=== PATIENT | female | born 2000 | race Caucasian/White ===

== ENCOUNTER 2020-12-04 07:38 | Emergency (ER) | payer OTHER ==
[2020-12-04 07:55] VITALS: BP 109/60; PULSE 87; TEMP 98.2; BMI 23.1
== END 2020-12-04 08:10 | disposition home or self-care (01) ==
LOC: FER 07:38
DX: U07.1 COVID-19 (principal); B34.9 Viral infection, unspecified
CPT/HCPCS: 99284-25; C9803; U0003

== ENCOUNTER 2021-09-19 09:20 | Emergency (ER) | payer OTHER ==
[2021-09-19 09:31] VITALS: BP 127/96; PULSE 83; TEMP 99.3; BMI 24.0
[2021-09-19] MEDS ORDERED: ACETAMINOPHEN 500 MG TABLET (FP) PO ONE (09:31)
[2021-09-19] MEDS ORDERED: ACETAMINOPHEN 500 MG TABLET (FP) ONE (09:36)
[2021-09-19 13:01] LABS: THROAT:GRP A STREP DETECTED (NOTDETECTED)
[2021-09-19 13:37] LABS: SARS COV-2 MOLECULAR Negative (Negative)
== END 2021-09-19 09:45 | disposition home or self-care (01) ==
LOC: FER 09:20
DX: J02.0 Streptococcal pharyngitis (principal); Z11.52 Encounter for screening for COVID-19
CPT/HCPCS: 87651; 99283-25; C9803; U0003; U0005

== ENCOUNTER 2022-03-26 18:50 | Emergency (ER) | payer OTHER ==
[2022-03-26 19:06] VITALS: BP 135/87; PULSE 93; TEMP 100.2; BMI 25.7
[2022-03-26] MEDS ORDERED: SODIUM CHLORIDE 1,000 ML IV STA (19:44)
[2022-03-26] MEDS ORDERED: ACETAMINOPHEN 1000 MG/100 ML BAG IVPB ONE (19:44)
[2022-03-26 20:02] LABS: HCG,QUALITATIVE URINE Negative
[2022-03-26] MEDS ORDERED: ACETAMINOPHEN INJECTION 100 ML IVPB ONE (20:03)
[2022-03-26 20:05] LABS: HEMATOCRIT 30.3 % (32.4-45.2); HEMOGLOBIN 10.9 G/dL (10.7-15.3); MCH 32.4 pg (25.7-33.7); MEAN CELL VOLUME 89.8 fl (80-96); MEAN PLT VOLUME 8.2 fl (7.5-11.1); PLATELET COUNT 201.2 10^3/uL (134-434); RBC 3.37 10^6/uL (3.60-5.2); RDW 13.7 % (11.6-15.6); WHITE BLOOD COUNT 6.4 10^3/uL (4.0-10.8)
[2022-03-26 20:12] LABS: EPITHELIAL CELLS FEW /hpf
[2022-03-26 20:13] LABS: PLATELET ESTIMATE ADEQUATE
[2022-03-26 20:19] LABS: BILIRUBIN,TOTAL 0.8 mg/dl (0.2-1); CALCIUM 8.9 mg/dl (8.5-10); CREATININE 0.9 mg/dl (0.55-1.3); TOT PROT 6.9 g/dl (6.4-8.2)
[2022-03-27] MEDS ORDERED: DOXYCYCLINE HYCLATE 100 MG CAPSULE PO ONE ×2 (00:24→00:26)
[2022-03-27] MEDS ORDERED: KETOROLAC TROMETHAMINE 15 MG/ML VIAL IVPUSH ONE (00:24)
[2022-03-27] MEDS ORDERED: KETOROLAC TROMETHAMINE 15 MG/ML VIAL ONE (00:26)
== END 2022-03-27 00:32 | disposition home or self-care (01) ==
LOC: FER 18:50
PROC: 3E0333Z Introduction of Anti-inflammatory into Peripheral Vein, Percutaneous Approach (ICD-10-PCS; principal; 2022-03-26)
PROC: 3E0333Z Introduction of Anti-inflammatory into Peripheral Vein, Percutaneous Approach (ICD-10-PCS; 2022-03-26)
PROC: 3E0337Z Introduction of Electrolytic and Water Balance Substance into Peripheral Vein, Percutaneous Approach (ICD-10-PCS; 2022-03-26)
DX: R10.9 Unspecified abdominal pain (principal)
CPT/HCPCS: 36415; 74176-TC; 80053; 81003; 81015; 83690; 84703; 85027; 99284-25

== ENCOUNTER 2024-05-15 07:15 | Inpatient (IN) | payer OTHER ==
[2024-05-15] MEDS: ELECTROLYTE-148 SOLN 1,000 ML IV SCH (09:30)
[2024-05-15 09:57] VITALS: BMI 31.9
[2024-05-15] MEDS: OXYTOCIN 30 UNITS in 0.9% NS 30 UNIT/500 ML INFUS.BAG IVPB SCH (10:00)
[2024-05-15 10:03] LABS: BASO % 0.5 % (0-2.0); EOS % 2.3 % (0-4.5); HEMATOCRIT 36.9 % (32.4-45.2); LYMPH % 16.2 % (8-40); MCH 31.8 pg (25.7-33.7); MCHC 35.3 g/dl (32.0-36.0); MEAN CELL VOLUME 89.9 fl (80-96); MEAN PLT VOLUME 8.2 fl (7.5-11.1); MONO % 6.1 % (3.8-10.2); NEUT % 74.9 % (42.8-82.8); PLATELET COUNT 206 10^3/uL (134-434); RDW 13.7 % (11.6-15.6); WHITE BLOOD COUNT 7.9 K/mm3 (4.0-10.0)
[2024-05-15] MEDS ORDERED: OXYTOCIN 30 UNITS in 0.9% NS 30 UNIT/500 ML INFUS.BAG IVPB ONE (10:04)
[2024-05-15 10:07] LABS: INR 0.96 (0.83-1.09); PROTHROMBIN TIME (PATIENT) 11.1 SEC (9.7-13.0)
[2024-05-15 10:10] LABS: ACTIVATED PTT 26.1 SECONDS (25.2-36.5)
[2024-05-15 10:26] LABS: POTASSIUM 3.9 mmol/L (3.5-5.1)
[2024-05-15 10:27] LABS: CALCIUM 8.6 mg/dL (8.5-10.1)
[2024-05-15 10:28] LABS: BLOOD UREA NITROGEN 3.2 mg/dL (7-18)
[2024-05-15 10:31] LABS: CREATININE 0.5 mg/dL (0.55-1.3)
[2024-05-15 11:11] LABS: POC NITRAZINE NEG
[2024-05-15] MEDS ORDERED: FENTANYL/BUPIVACAINE/NS/PF - PCEA - 50 ML DISP.SYRIN EP ONE (13:40)
[2024-05-15] MEDS ORDERED: LIDOCAINE 1%/EPI 1:100000 (20 ML MULTI DOSE VIAL) ONE (14:04)
[2024-05-15] MEDS ORDERED: BUPIVACAINE HCL/PF 0.25% (2.5MG/ML) 10 ML VIAL ONE (14:04)
[2024-05-15] MEDS: FENTANYL/BUPIVACAINE/NS/PF - PCEA - 50 ML DISP.SYRIN EP SCH (14:30)
[2024-05-15] MEDS ORDERED: NALOXONE HCL 0.4 MG/ML VIAL IVPUSH PRN (15:17)
[2024-05-15] MEDS ORDERED: OXYTOCIN 20 UNITS in 0.9% NS 20 UNIT/1,000 ML INFUS.BAG IV ONE (16:27)
[2024-05-15] MEDS ORDERED: LIDOCAINE HCL 1% PRESERVATIVE FREE - 30ML VIAL ONE (16:27)
[2024-05-15] MEDS: OXYTOCIN 20 UNITS in 0.9% NS 20 UNIT/1,000 ML INFUS.BAG IV SCH (17:05)
[2024-05-15 17:32] LABS: CORD BASE EXCESS -3.4 mmol/L (0-2); CORD HCO3 20.5 mmHg (20-29); CORD PCO2 33.9 mmHg (30-78); CORD pH 7.4 (7.14-7.44)
[2024-05-15] MEDS ORDERED: BISACODYL 10 MG SUPP.RECT RC PRN (19:44)
[2024-05-15] MEDS ORDERED: METHYLERGONOVINE MALEATE 0.2 MG/1 ML AMP IM PRN (19:44)
[2024-05-15] MEDS ORDERED: oxyCODONE HCL 5 MG TABLET PO PRN (19:44)
[2024-05-15] MEDS ORDERED: BENZOCAINE 28 GM HEMORRHOIDAL OINTMENT TP PRN (19:44)
[2024-05-15] MEDS: BENZOCAINE 20% 57 GM BOTTLE TP PRN (20:06)
[2024-05-15] MEDS: WITCH HAZEL 50% (TUCKS) 40 PAD/JAR PAD TP PRN (20:07)
[2024-05-16] MEDS: IBUPROFEN 600 MG TABLET (FP) PO PRN (02:10)
[2024-05-16 07:18] LABS: BASO % 0.3 % (0-2.0); EOS % 1.4 % (0-4.5); HEMATOCRIT 35.8 % (32.4-45.2); HEMOGLOBIN 12.4 GM/dL (10.7-15.3); MCH 31.4 pg (25.7-33.7); MCHC 34.6 g/dl (32.0-36.0); MEAN CELL VOLUME 90.7 fl (80-96); MEAN PLT VOLUME 8.4 fl (7.5-11.1); MONO % 7.9 % (3.8-10.2); NEUT % 78.4 % (42.8-82.8); PLATELET COUNT 183 10^3/uL (134-434); RBC 3.95 M/mm3 (3.60-5.2); RDW 13.6 % (11.6-15.6); WHITE BLOOD COUNT 12.4 K/mm3 (4.0-10.0)
[2024-05-16] MEDS: PRENATAL VITAMINS W/ FOLIC ACID TABLET (FP) PO SCH (10:53)
[2024-05-16 12:52] VITALS: RESP 17
[2024-05-16] MEDS: ACETAMINOPHEN 325 MG TABLET (FP) PO PRN (19:43)
[2024-05-16] MEDS: OXYTOCIN 30 UNITS in 0.9% NS 30 UNIT/500 ML INFUS.BAG IVPB SCH (19:45)
[2024-05-16] MEDS ORDERED: SENNOSIDES/DOCUSATE COMBO (SENNA PLUS) TABLET (UD) PO PRN (22:00)
[2024-05-17 11:32] VITALS: BP 123/75; PULSE 76; TEMP 98
== END 2024-05-17 13:40 | disposition home or self-care (01) | DRG 560 ==
LOC: JDEL 07:15 → JLDR 08:50 → J3W 20:05
PROVIDERS: ADMIT Obstetrics & Gynecology; ATTEND Obstetrics & Gynecology
PROC: 10E0XZZ Delivery of Products of Conception, External Approach (ICD-10-PCS; principal; 2024-05-15)
DX: O80 Encounter for full-term uncomplicated delivery (principal); Z3A.40 40 weeks gestation of pregnancy; Z37.0 Single live birth
CPT/HCPCS: 36415; 36600; 59025; 59409; 80048; 82803; 83986-QW; 85025; 85610; 85730; 86780; 86850; 86900; 86901